=== PATIENT | female | born 1985 | race Caucasian/White ===

== ENCOUNTER 2016-12-03 02:44 | Inpatient (IN) | payer BC, OTHER ==
[2016-12-03 03:52] LABS: Hematocrit 39 % (35-47); Hemoglobin 12.9 g/dl (12.0-16.0); Mean Corpuscular HGB Conc 33 g/dl (31-36); Mean Corpuscular Hemoglobin 29 pg (27-31); Mean Corpuscular Volume 87 fL (80-97); Mean Platelet Volume 10 um3 (7.4-10.4); Red Blood Count 4.44 10^6/ul (4.0-5.4); Red Cell Distribution Width 14 % (10.5-15); White Blood Count 11.5 10^3/ul (3.5-10.8)
[2016-12-03 04:47] LABS: Albumin 3.5 g/dL (3.2-5.2); BUN/Creatinine Ratio 16.1 (8-20); Calcium 9.5 mg/dL (8.6-10.3); EGFR African American 145.4 (>60); Globulin 2.6 g/dL (2-4); Potassium 3.9 mmol/L (3.5-5.0); Total Bilirubin 0.4 mg/dL (0.2-1.0); Total Protein 6.1 g/dL (6.4-8.9); Uric Acid 5.6 mg/dL (2.3-6.6)
[2016-12-03] MEDS ORDERED: Oxytocin in LR* 20 UNITS/1,000 ML BAG IVPB SCH ×2 (15:00→21:00)
[2016-12-03] MEDS ORDERED: OBEPIDURAL* 0 ML ONE (18:53)
[2016-12-03] MEDS ORDERED: Dibucaine 1% 28.35 GM TUBE PR PRN (20:14)
[2016-12-03] MEDS ORDERED: oxyCODONE/Acetamin 5/325 MG* TAB PO PRN (20:14)
[2016-12-03] MEDS ORDERED: Acetaminophen TAB* 325 MG PO PRN (20:14)
[2016-12-03] MEDS ORDERED: Witch Hazel PAD* JAR TOPICAL PRN (20:14)
[2016-12-03] MEDS: Ibuprofen TAB* 600 MG PO PRN (20:56)
[2016-12-03] MEDS: Docusate CAP* 100 MG PO SCH (20:57)
[2016-12-04 07:48] LABS: Hematocrit 32 % (35-47); Mean Corpuscular HGB Conc 34 g/dl (31-36); Mean Corpuscular Hemoglobin 30 pg (27-31); Mean Corpuscular Volume 87 fL (80-97); Mean Platelet Volume 10 um3 (7.4-10.4); Red Cell Distribution Width 14 % (10.5-15)
[2016-12-04] MEDS: Ibuprofen TAB* 600 MG PO PRN ×3 (09:01→21:29)
[2016-12-04] MEDS: Docusate CAP* 100 MG PO SCH ×3 (09:02→20:35)
[2016-12-04] MEDS: Ferrous Gluconate TAB* 324 MG TAB PO SCH (10:39)
[2016-12-05] MEDS: Ferrous Gluconate TAB* 324 MG TAB PO SCH (07:21)
[2016-12-05 07:26] VITALS: BP 101/61
[2016-12-05] MEDS: Ibuprofen TAB* 600 MG PO PRN (08:11)
[2016-12-05] MEDS: Docusate CAP* 100 MG PO SCH (08:11)
--- NOTE | 2016-12-05 09:48 | PTEDU ---
Patient Name: EVANGELIST MELÉNDEZ EVANGELIST MELÉNDEZ selected video: Never Ever Shake a Baby to view on 12/05/2016 at 9:47:11 AM from [facility] [id number]
== END 2016-12-05 14:46 | disposition home or self-care (01) | DRG 560 ==
LOC: MCHOBOUT 02:44 → MCHOB 03:16
PROVIDERS: ADMIT Midwife; ATTEND Nurse Practitioner
PROC: 10E0XZZ Delivery of Products of Conception, External Approach (ICD-10-PCS; principal; 2016-12-05)
PROC: 0W8NXZZ Division of Female Perineum, External Approach (ICD-10-PCS; 2016-12-05)
PROC: 0KQM0ZZ Repair Perineum Muscle, Open Approach (ICD-10-PCS; 2016-12-05)
DX: O70.1 Second degree perineal laceration during delivery (principal); Z37.0 Single live birth; J45.909 Unspecified asthma, uncomplicated; O99.513 Diseases of the respiratory system complicating pregnancy, third trimester; O99.820 Streptococcus B carrier state complicating pregnancy; Z3A.38 38 weeks gestation of pregnancy; Z91.040 Latex allergy status
CPT/HCPCS: 36415; 80053; 81002; 84550; 85025; 86850; 86900; 86901; A9270-GY

== ENCOUNTER 2016-12-15 15:49 | Inpatient (IN) | payer BC, OTHER ==
[2016-12-15] MEDS ORDERED: NS 0.9% 1000 ML* 1,000 ML IV ONE ×5 (16:09→21:30)
[2016-12-15 16:33] LABS: Hematocrit 40 % (35-47); Hemoglobin 13.2 g/dl (12.0-16.0); Mean Corpuscular HGB Conc 33 g/dl (31-36); Mean Corpuscular Hemoglobin 29 pg (27-31); Mean Corpuscular Volume 87 fL (80-97); Mean Platelet Volume 7 um3 (7.4-10.4); Red Blood Count 4.55 10^6/ul (4.0-5.4); Red Cell Distribution Width 14 % (10.5-15); White Blood Count 14.8 10^3/ul (3.5-10.8)
[2016-12-15 16:44] LABS: Calcium 9.5 mg/dL (8.6-10.3); EGFR African American 155.9 (>60); EGFR Non-African American 121.3 (>60); Potassium 3.5 mmol/L (3.5-5.0); Total Bilirubin 0.4 mg/dL (0.2-1.0)
[2016-12-15] MEDS ORDERED: Ketorolac INJ* 30 MG/ML 1 ML VIAL IV ONE (16:51)
[2016-12-15 18:14] LABS: Urine Bacteria Absent (Absent); Urine Bilirubin Negative (Negative); Urine Glucose Negative (Negative); Urine Nitrite Negative (Negative)
--- NOTE | 2016-12-15 18:32 | RAD ---
INDICATION: Pain and vaginal bleeding 10 days COMPARISON: No relevant comparison images TECHNIQUE: Real-time transabdominal and transvaginal ultrasound examination of the female pelvis including grayscale and Doppler color flow imaging. FINDINGS: Uterus: The recently uterus is normal in size and echogenicity measuring 13.6 x 6.2 x 8.2 cm. The endometrial stripe is smooth and uniform measuring 11 mm in thickness. There is no vascular debris in the endometrial canal. The endometrial stripe in addition to be top normal in thickness exhibits low echogenicity. There is no hypervascularity in any part of the uterus. Ovaries: The right and left ovary measure 4.6 x 1.8 x 3.4 cm and 1.9 x 2.3 x 4.2 cm, respectively. Normal arterial and venous waveforms are identified. Appearance is within normal limits for the patient's age. There is no free fluid in the cul-de-sac. IMPRESSION: Considering the patient's 10 day status, the sonographic features are within the limits of normal. If the patient's symptoms persist and/or CT develops signs of endometritis such as fever and purulent drainage then repeat imaging is advised.
[2016-12-15] MEDS ORDERED: Acetaminophen TAB* 325 MG PO ONE (18:47)
[2016-12-15] MEDS ORDERED: cefTRIAXone(*) 1 GM in NS 0.9% 50 ML* 50 ML IVPB ONE (18:48)
[2016-12-15] MEDS ORDERED: Ampicillin IV* 2 GM in NS 0.9% 100 ML* 100 ML IVPB ONE (19:02)
[2016-12-15] MEDS ORDERED: Gentamicin ADULT (*) 120 MG in NS 0.9% 100 ML* 100 ML IVPB ONE (19:02)
[2016-12-15] MEDS ORDERED: Clindamycin 900 MG IVPREMIX(* 900 MG/50 ML SDV IV ONE (19:03)
--- NOTE | 2016-12-15 19:05 | RAD ---
INDICATION: Shortness of breath. COMPARISON: Fever 10 days . TECHNIQUE: Single AP portable view of the chest was obtained. FINDINGS: Image quality is compromised due to the relative inferiority of a portable chest x-ray. The heart and mediastinum exhibit normal size and contour. The lungs are grossly clear. There is no evidence of a large pleural effusion. Visualized bones are normal for the patient's age. IMPRESSION: No radiographic evidence for acute cardiopulmonary abnormality on this portable chest x-ray.
--- NOTE | 2016-12-15 19:06 | ED ---
Ambar Hernandez Michael, scribed for Jane Yee MD on 12/15/16 at 1648 . GI/ HPI - HPI Summary HPI Summary: 31 y/o female comes to the ED presenting with vaginal bleeding and sharp vaginal pain that started 2 days ago. The pt is 11 days post with 1cm vaginal tears. She states that her vaginal bleeding was almost gonna when it gradually worsened along with the vaginal pain. The pain is aggravated with ambulation. She also c/o BHARDWAJ, myalgia, chills, and a fever of 102.1. The pt denies breast pain, cough, dysuria, and abd pain. - History of Current Complaint Chief Complaint: EDFever Time Seen by Provider: 12/15/16 16:07 Stated Complaint: 10 DAYS /FEVER Hx Obtained From: Patient, Medical Records Onset/Duration: Started Days Ago, Still Present Timing: Intermittent Severity: Moderate Current Severity: Mild Vaginal Bleeding Description: Bright Red Pain Intensity: 3 Additional Location for Females: Uterus Pain Characteristics: Sharp Associated Signs and Symptoms: Positive: Negative - breast pain, Fever, Chills, Other: - myalgia. BHARDWAJ. vaginal bleeding.. Negative: Dysuria, Abdominal Pain, Cough - Allergy/Home Medications Allergies/Adverse Reactions: Allergies Allergy/AdvReac Type Severity Reaction Status Date / Time No Known Allergies Allergy Verified 12/15/16 15:51 PMH/Surg Hx/FS Hx/Imm Hx Endocrine/Hematology History: Denies: Hx Diabetes Respiratory History: Reports: Hx Asthma Psychiatric History: Reports: Hx Anxiety - Surgical History Surgery Procedure, Year, and Place: Benign Breast Tumors x 5. Breast Reconstruction. T&A Infectious Disease History: No Infectious Disease History: Denies: Traveled Outside the [place] in Last 30 Days - Family History Known Family History: Positive: None - pt denies a significant FHx - Social History Occupation: Employed Full-time Lives: With Family Alcohol Use: None Substance Use Type: Reports: None Smoking Status (MU): Never Smoked Tobacco Review of Systems Positive: Fever, Chills Negative: Cough Negative: Abdominal Pain Positive: other - vaginal bleeding and pain.. Negative: dysuria Positive: Headache All Other Systems Reviewed And Are Negative: Yes Physical Exam Triage Information Reviewed: Yes Vital Signs On Initial Exam: Initial Vitals Temp Pulse Resp BP Pulse Ox 102.1 F 138 20 158/96 100 12/15/16 15:51 12/15/16 15:51 12/15/16 15:51 12/15/16 15:51 12/15/16 15:51 Vital Signs Reviewed: Yes Appearance: Positive: Well-Appearing, No Pain Distress Skin: Positive: Warm, Skin Color Reflects Adequate Perfusion, Dry Eyes: Positive: EOMI, MARIANA ENT: Positive: Pharynx normal, TMs normal Neck: Positive: Supple, Nontender Respiratory/Lung Sounds: Positive: Clear to Auscultation, Breath Sounds Present. Negative: Rales, Rhonchi, Wheezes Cardiovascular: Positive: Tachycardia, Other - no gallops. Negative: Murmur, Rub Abdomen Description: Positive: Nontender, Soft, Other: - no rebound. Negative: Guarding Musculoskeletal: Positive: Strength/ROM Intact. Negative: Edema Left, Edema Right Neurological: Positive: Sensory/Motor Intact, Alert, Oriented to Person Place, Time, CN Intact II-III Psychiatric: Positive: Affect/Mood Appropriate - Destiny Coma Scale Coma Scale Total: 15 Diagnostics - Vital Signs Vital Signs Temp Pulse Resp BP Pulse Ox 12/15/16 15:51 102.1 F 138 20 158/96 100 - Laboratory Lab Results: Lab Results 12/15/16 12/15/16 12/15/16 Range/Units 16:05 16:05 16:05 WBC 14.8 H (3.5-10.8) 10^3/ul RBC 4.55 (4.0-5.4) 10^6/ul Hgb 13.2 (12.0-16.0) g/dl Hct 40 (35-47) % MCV 87 (80-97) fL MCH 29 (27-31) pg MCHC 33 (31-36) g/dl RDW 14 (10.5-15) % Plt Count 243 (150-450) 10^3/ul MPV 7 L (7.4-10.4) um3 Neut % (Auto) 88.8 H (38-83) % Lymph % (Auto) 6.9 L (25-47) % [place] % (Auto) 3.6 (1-9) % Eos % (Auto) 0.3 (0-6) % Baso % (Auto) 0.4 (0-2) % Absolute Neuts (auto) 13.2 H (1.5-7.7) 10^3/ul Absolute Lymphs (auto) 1.0 (1.0-4.8) 10^3/ul Absolute Monos (auto) 0.5 (0-0.8) 10^3/ul Absolute Eos (auto) 0.1 (0-0.6) 10^3/ul Absolute Basos (auto) 0.1 (0-0.2) 10^3/ul Absolute Nucleated RBC 0.01 10^3/ul Nucleated RBC % 0 INR (Anticoag Therapy) 0.88 L (0.89-1.11) Sodium 135 (133-145) mmol/L Potassium 3.5 (3.5-5.0) mmol/L Chloride 104 (101-111) mmol/L Carbon Dioxide 24 (22-32) mmol/L Anion Gap 7 (2-11) mmol/L BUN 11 (6-24) mg/dL Creatinine 0.58 (0.51-0.95) mg/dL Est GFR ( Amer) 155.9 (>60) Est GFR (Non-Af Amer) 121.3 (>60) BUN/Creatinine Ratio 19.0 (8-20) Glucose 94 (70-100) mg/dL Lactic Acid (0.5-2.0) mmol/L Calcium 9.5 (8.6-10.3) mg/dL Total Bilirubin 0.40 (0.2-1.0) mg/dL AST 23 (13-39) U/L ALT 25 (7-52) U/L Alkaline Phosphatase 112 H (34-104) U/L Total Protein 7.0 (6.4-8.9) g/dL Albumin 4.0 (3.2-5.2) g/dL Globulin 3.0 (2-4) g/dL Albumin/Globulin Ratio 1.3 (1-3) Urine Color Urine Appearance Urine pH (5-9) Ur Specific [place] (1.010-1.030) Urine Protein (Negative) Urine Ketones (Negative) Urine Blood (Negative) Urine Nitrate (Negative) Urine Bilirubin (Negative) Urine Urobilinogen (Negative) Ur Leukocyte Esterase (Negative) Urine WBC (Auto) (Absent) Urine RBC (Auto) (Absent) Ur Squamous Epith Cells (Absent) Urine Bacteria (Absent) Urine Glucose (Negative) Influenza A (Rapid) (Negative) Influenza B (Rapid) (Negative) 12/15/16 12/15/16 12/15/16 Range/Units 16:05 17:40 18:05 WBC (3.5-10.8) 10^3/ul RBC (4.0-5.4) 10^6/ul Hgb (12.0-16.0) g/dl Hct (35-47) % MCV (80-97) fL MCH (27-31) pg MCHC (31-36) g/dl RDW (10.5-15) % Plt Count (150-450) 10^3/ul MPV (7.4-10.4) um3 Neut % (Auto) (38-83) % Lymph % (Auto) (25-47) % [place] % (Auto) (1-9) % Eos % (Auto) (0-6) % Baso % (Auto) (0-2) % Absolute Neuts (auto) (1.5-7.7) 10^3/ul Absolute Lymphs (auto) (1.0-4.8) 10^3/ul Absolute Monos (auto) (0-0.8) 10^3/ul Absolute Eos (auto) (0-0.6) 10^3/ul Absolute Basos (auto) (0-0.2) 10^3/ul Absolute Nucleated RBC 10^3/ul Nucleated RBC % INR (Anticoag Therapy) (0.89-1.11) Sodium (133-145) mmol/L Potassium (3.5-5.0) mmol/L Chloride (101-111) mmol/L Carbon Dioxide (22-32) mmol/L Anion Gap (2-11) mmol/L BUN (6-24) mg/dL Creatinine (0.51-0.95) mg/dL Est GFR ( Amer) (>60) Est GFR (Non-Af Amer) (>60) BUN/Creatinine Ratio (8-20) Glucose (70-100) mg/dL Lactic Acid 1.6 (0.5-2.0) mmol/L Calcium (8.6-10.3) mg/dL Total Bilirubin (0.2-1.0) mg/dL AST (13-39) U/L ALT (7-52) U/L Alkaline Phosphatase (34-104) U/L Total Protein (6.4-8.9) g/dL Albumin (3.2-5.2) g/dL Globulin (2-4) g/dL Albumin/Globulin Ratio (1-3) Urine Color Straw Urine Appearance Clear Urine pH 6.0 (5-9) Ur Specific [place] 1.005 L (1.010-1.030) Urine Protein Negative (Negative) Urine Ketones Negative (Negative) Urine Blood 2+ H (Negative) Urine Nitrate Negative (Negative) Urine Bilirubin Negative (Negative) Urine Urobilinogen Negative (Negative) Ur Leukocyte Esterase 1+ H (Negative) Urine WBC (Auto) 2+(11-20/hpf) H (Absent) Urine RBC (Auto) Trace(0-2/hpf) (Absent) Ur Squamous Epith Cells Present H (Absent) Urine Bacteria Absent (Absent) Urine Glucose Negative (Negative) Influenza A (Rapid) Negative (Negative) Influenza B (Rapid) Negative (Negative) Result Diagrams: 12/15/16 16:05 12/15/16 16:05 Lab Statement: Any lab studies that have been ordered have been reviewed, and results considered in the medical decision making process. - Radiology CXR Xray Interpretation: No Acute Changes Radiology Interpretation Completed By: ED Physician - Additional Comments Diagnostic Additional Comments: Pelvic US: Radiologist-Considering the patient's 10 day status, the sonographic features are within the limits of normal. If the patient's symptoms persist and/or CT develops signs of endometritis such as fever and purulent drainage then repeat imaging is advised. GIGU Course/Dx - Course Course Of Treatment: pt will be admitted to OB for endometritis - Diagnoses Provider Diagnoses: Endometritis Discharge - Discharge Plan Condition: Stable Disposition: ADMITTED TO [facility] Prescriptions: Cephalexin CAP* [Keflex CAP*] 500 mg PO QID #28 cap The documentation as recorded by the Ambar frazier Michael accurately reflects the service I personally performed and the decisions made by me, Jane Yee MD.
[2016-12-15] MEDS ORDERED: Acetaminophen TAB* 325 MG PO PRN (21:30)
[2016-12-15] MEDS: Ibuprofen TAB* 600 MG PO SCH (22:21)
[2016-12-15] MEDS: Ampicillin IV* 2 GM in NS 0.9% 100 ML* 100 ML IVPB SCH (22:21)
[2016-12-15] MEDS: Gentamicin ADULT (*) 100 MG in NS 0.9% 100 ML* 100 ML IVPB SCH (23:12)
[2016-12-15] MEDS: Clindamycin 900 MG IVPREMIX(* 900 MG/50 ML SDV IV SCH (23:58)
--- NOTE | 2016-12-16 03:57 | HP ---
HISTORY AND PHYSICAL: DATE OF ADMISSION: 12/15/16 ADMISSION DIAGNOSIS: Fever. HISTORY OF PRESENT ILLNESS: The patient is a 31-year-old 2 para 1-0-1-1 , who presents status post 12 days normal spontaneous vaginal delivery with elevated fevers to a 102 in the emergency room and approximately 24 hours of temperatures and chills at home. The patient notes in the past 48 hours, her bleeding had picked up, started as bright red and then the day of admission was noted to have an odor to the discharge and for it to have brownish to red color. The patient notes she has been having some stabbing lower abdominal pain and notes that this discomfort has increased throughout the past 24 hours. The patient is breast feeding and has had normal normal with pumping in between. The patient had an uncomplicated vaginal with second - degree laceration and was noted to be GBS positive and did receive penicillin G in labor. PAST MEDICAL HISTORY: Noted for asthma and some history of anxiety in the past. PAST SURGICAL HISTORY: Noted for benign tumor removal with breast biopsies and then breast augmentation and tonsils and adenoids. ALLERGIES: No known drug allergies. 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 Denies tobacco use or current alcohol use. 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 REVIEW OF SYSTEMS: Positive for chills. Positive for fever. Negative for nausea, vomiting. Negative for dysuria. as noted above in history with increasing discharge and discomfort. PHYSICAL EXAMINATION CONSTITUTIONAL: Pleasant-appearing female with no apparent distress. VITAL SIGNS: Temp at the time of exam was 99.2, blood pressure was 128/90, pulse was 109, resps 16. CHEST: No adenopathy appreciated in the axilla. Breasts are engorged. No erythema. No tenderness. No nodules appreciated in breast exam bilaterally. ABDOMEN: Scaphoid. Tenderness above the pubic symphysis with palpation of the fundus of the uterus. EXTREMITIES: Nontender. No edema. PERINEAL EXAM: Shows a green-brown discharge with red tint. Perineum appears to be intact. Per ER physician, cervix with normal appearance and no cervical motion tenderness. ASSESSMENT AND PLAN: The patient is a 31-year-old 2, para 1, status post normal spontaneous vaginal delivery on 12/03/16. The patient comes in with probable endometritis. Plan is to do blood cultures, which were obtained prior to beginning antibiotics. Her white count is slightly elevated at 14.8 with a left shift and 88 neutrophils. The plan is to recheck in a.m. She is to receive broad-spectrum antibiotics including amp, gent and clinda. She will continue to pump as she has been pumping at home and we can store that milk for her to save for her baby. We will cover fever with Tylenol and any uterine cramping or discomfort with oral ibuprofen. The patient verbalized an understanding of the diagnosis and the plan of treatment and care. [id number]/[facility] #: [id number] ZO
[2016-12-16] MEDS: Ampicillin IV* 2 GM in NS 0.9% 100 ML* 100 ML IVPB SCH ×4 (04:16→22:03)
[2016-12-16] MEDS: Ibuprofen TAB* 600 MG PO SCH ×3 (06:36→22:07)
[2016-12-16] MEDS: Gentamicin ADULT (*) 100 MG in NS 0.9% 100 ML* 100 ML IVPB SCH ×3 (06:36→23:09)
[2016-12-16] MEDS: Clindamycin 900 MG IVPREMIX(* 900 MG/50 ML SDV IV SCH ×3 (07:43→23:57)
[2016-12-16 08:28] LABS: Hematocrit 35 % (35-47); Hemoglobin 11.3 g/dl (12.0-16.0); Mean Corpuscular HGB Conc 33 g/dl (31-36); Mean Corpuscular Hemoglobin 29 pg (27-31); Mean Corpuscular Volume 88 fL (80-97); Mean Platelet Volume 7 um3 (7.4-10.4); Red Blood Count 3.93 10^6/ul (4.0-5.4); Red Cell Distribution Width 15 % (10.5-15); White Blood Count 17.4 10^3/ul (3.5-10.8)
[2016-12-16] MEDS: Prenatal Vitamin TAB PO SCH (09:29)
[2016-12-16] MEDS: Lactobacillus Acidophilu (GG)* 1 CAP CAP PO SCH (22:08)
[2016-12-17] MEDS: Ampicillin IV* 2 GM in NS 0.9% 100 ML* 100 ML IVPB SCH ×2 (03:51→09:37)
[2016-12-17] MEDS: Ibuprofen TAB* 600 MG PO SCH (06:17)
[2016-12-17] MEDS: Gentamicin ADULT (*) 100 MG in NS 0.9% 100 ML* 100 ML IVPB SCH (06:18)
[2016-12-17] MEDS: Prenatal Vitamin TAB PO SCH (07:36)
[2016-12-17] MEDS: Clindamycin 900 MG IVPREMIX(* 900 MG/50 ML SDV IV SCH (07:36)
[2016-12-17] MEDS: Lactobacillus Acidophilu (GG)* 1 CAP CAP PO SCH (07:36)
[2016-12-17 07:56] VITALS: BP 118/83
[2016-12-17 09:11] LABS: Hematocrit 34 % (35-47); Hemoglobin 11.6 g/dl (12.0-16.0); Mean Corpuscular HGB Conc 34 g/dl (31-36); Mean Corpuscular Hemoglobin 29 pg (27-31); Mean Corpuscular Volume 87 fL (80-97); Mean Platelet Volume 7 um3 (7.4-10.4); Red Blood Count 3.96 10^6/ul (4.0-5.4); Red Cell Distribution Width 14 % (10.5-15); White Blood Count 8.3 10^3/ul (3.5-10.8)
[2016-12-17] MEDS ORDERED: Amoxicillin/Clavulanate TAB* 875 MG PO SCH (21:00)
--- NOTE | 2016-12-25 00:59 | DS ---
DISCHARGE SUMMARY: DATE OF ADMISSION: DATE OF DISCHARGE: 12/17/16 HOSPITAL COURSE: The patient presented on 12/15/16. She is 31 years old, 2, para 1-0-1-1. She was day 12 from a normal spontaneous vaginal delivery. The patient complained of fever and chills for 24 hours. Her temperature on admission was 102. Her white blood cell count was 14.8. The presumptive diagnosis was endometritis. She received ampicillin , gentamicin, and clindamycin IV. Over the next 2 days, her symptoms resolved. She was clinically well. She was afebrile and her white count returned to normal by 12/17/16. One of the blood cultures was positive for group B strep. She was discharged home on Augmentin for a 14-day course. [id number]/[facility] #: [id number] MTDD
== END 2016-12-17 10:30 | disposition home or self-care (01) | DRG 776 ==
LOC: ED 15:49 → SSU 19:00 → OBSVTOIN 21:30
PROVIDERS: ADMIT Obstetrics & Gynecology; ATTEND Obstetrics & Gynecology
DX: O86.12 Endometritis following delivery (principal); B95.1 Streptococcus, group B, as the cause of diseases classified elsewhere; J45.909 Unspecified asthma, uncomplicated
CPT/HCPCS: 36415; 71010; 76856; 80053; 81003; 81015; 83605; 85025; 85610; 87040; 87077; 87086; 87186; 87502; A9270-GY; J0290; J0696; J1580; J1885

== ENCOUNTER 2018-12-11 01:13 | Inpatient (IN) | payer OTHER ==
[2018-12-11] MEDS ORDERED: OBEPIDURAL* 0 ML EPIDURAL ONE (01:39)
[2018-12-11 01:45] LABS: ABS Basophils 0 10^3/ul (0-0.2); ABS Eosinophils 0 10^3/ul (0-0.6); ABS Lymphocytes 2.3 10^3/ul (1.0-4.8); ABS Monocytes 0.8 10^3/ul (0-0.8); ABS Neutrophils 6.4 10^3/ul (1.5-7.7); ABS Nucleated RBC 0 10^3/ul; Eosinophil % 0.5 %; Hematocrit 39 % (33-41); Hemoglobin 12.9 g/dL (12.0-16.0); Lymphocyte % 23.7 %; Mean Corpuscular HGB Conc 33 g/dL (31-36); Mean Corpuscular Hemoglobin 28 pg (27-31); Mean Corpuscular Volume 83 fL (80-97); Mean Platelet Volume 8.7 fL (7.4-10.4); Nucleated Red Blood Cells % 0; Platelet Count 200 10^3/uL (150-450); Red Blood Count 4.68 10^6 /uL (3.70-4.87); Red Cell Distribution Width 14 % (10.5-15); White Blood Count 9.6 10^3/uL (3.5-10.8)
[2018-12-11] MEDS ORDERED: Oxytocin in LR* 20 UNITS/1,000 ML BAG IVPB ONE (02:34)
[2018-12-11] MEDS ORDERED: Buffered Lidocaine 1% SYRIN* 1 ML/SYRINGE INTRADERM ONE (02:51)
[2018-12-11] MEDS ORDERED: Lactated Ringers 1000 ML Bag* 1,000 ML IV ONE (02:51)
[2018-12-11] MEDS ORDERED: Penicillin G Potassium IV* 5,000,000 UNITS in NS 0.9% 100 ML* 100 ML IVPB ONE (02:51)
[2018-12-11] MEDS ORDERED: Witch Hazel PAD* JAR TOPICAL PRN (02:58)
[2018-12-11] MEDS ORDERED: Glycerin ADULT SUPP PR PRN (02:58)
[2018-12-11] MEDS ORDERED: RHO D Immune Globulin (HUMAN)* 300 MCG = 1,500 I.U. INJ IM ONE (02:58)
[2018-12-11] MEDS ORDERED: Dibucaine 1% 28.35 GM TUBE PR PRN (02:58)
[2018-12-11] MEDS ORDERED: Oxytocin in LR* 20 UNITS/1,000 ML BAG IVPB SCH (03:00)
[2018-12-11] MEDS ORDERED: Lactated Ringers 1000 ML Bag* 1,000 ML IV SCH ×2 (03:00)
[2018-12-11] MEDS: Ibuprofen TAB* 600 MG PO PRN ×3 (04:14→19:38)
[2018-12-11] MEDS: Penicillin G Potassium IV* 2,500,000 UNITS in NS 0.9% 100 ML* 100 ML IVPB SCH ×3 (07:50→16:07)
[2018-12-11] MEDS ORDERED: Simethicone TAB* 80 MG TAB.CHEW PO SCH (08:30)
[2018-12-11] MEDS: Docusate CAP* 100 MG PO SCH ×3 (08:33→21:25)
[2018-12-11] MEDS: Acetaminophen TAB* 325 MG PO PRN ×2 (09:12→14:29)
--- NOTE | 2018-12-11 18:38 | HP ---
General Information - Reason for Visit IUP@38+1 admitted for active labor - General Information Maternal Age: 33 Grav: 3 Para: 0 SAB: 1 IEA: 0 Estimated Due Date: 12/24/18 Determined By: LMP Gestational Age in Weeks/Days: 38+1 Maternal Blood Type and Rh: O Negative - Results this Serology/RPR Result: Non-Reactive Rubella Result: Immune HBsAg Result: Negative HIV Result: Negative GBS Culture Result: Positive Past Medical History Delivery History: Hx Complicated Vaginal Delivery, See Records - Hx of PP endometritis/sepsis Pertinent Past Medical History: See Records Past Medical History Comment: Asthma, allergies, anxiety Pertinent Past Surgical History: See Records Past Surgical History Comment: breast lumpectomy, breast augmentation, tonsillectomy Pertinent Family History: See Records Family History Comment: PGM hx of breast cancer - Antepartal Records Antepartal Records: Reviewed, Uncomplicated Review of Systems Constitutional: Uncomfortable CV Complaint: No Respiratory: Shortness of Breath: No Gastrointestinal: No Nausea/Vomiting, Diarrhea Genitourinary: No Dysuria, No Leaking Fluid, Spotting Musculoskeletal: Back Pain, Contractions Neurological: No Headache, No Visual Changes Movement: Normal Exam Allergies/Adverse Reactions: Allergies No Known Allergies Allergy (Verified 12/15/16 15:51) Vital Signs 12/11/18 12/11/18 12/11/18 02:30 03:00 04:00 Temperature 98.2 F 98.3 F 98.4 F Pulse Rate 87 80 83 Respiratory 18 18 18 Rate Blood Pressure 127/88 122/69 115/73 (mmHg) O2 Sat by Pulse Oximetry 12/11/18 12/11/18 12/11/18 05:00 06:05 09:40 Temperature 98.6 F 99.0 F 99.1 F Pulse Rate 76 77 89 Respiratory 18 18 20 Rate Blood Pressure 117/75 127/77 121/79 (mmHg) O2 Sat by Pulse 98 Oximetry 12/11/18 15:57 Temperature 98.6 F Pulse Rate 88 Respiratory 16 Rate Blood Pressure 112/74 (mmHg) O2 Sat by Pulse Oximetry Lab Values - Entire Visit: Laboratory Tests 12/11/18 12/11/18 01:36 01:36 WBC 9.6 RBC 4.68 Hgb 12.9 Hct 39 MCV 83 MCH 28 MCHC 33 RDW 14 Plt Count 200 MPV 8.7 Neut % (Auto) 66.9 Lymph % (Auto) 23.7 [place] % (Auto) 8.4 Eos % (Auto) 0.5 Baso % (Auto) 0.5 Absolute Neuts (auto) 6.4 Absolute Lymphs (auto) 2.3 Absolute Monos (auto) 0.8 Absolute Eos (auto) 0 Absolute Basos (auto) 0 Absolute Nucleated RBC 0 Nucleated RBC % 0 Blood Type O Negative Antibody Screen Negative - Measurements Height: 5 ft 2 in Weight: 152 lb Weight in lbs: 152.470395 Body Mass Index (BMI): 27.8 Pre- Weight: 114 lb 15.996 oz Weight Gained This : 37.000 lbs and 0.004 ozs - Exam Breast: Breast Exam Deferred CVA: No CVA Tenderness Extremities: No Edema Heart: Normal Rhythm/Heart Sounds HEENT: No Significant Findings Lungs: Clear Bilaterally Rectal: Rectal Exam Deferred Reflexes: DTR 2+ Targeted Exam Findings See L&D Outpatient Visit Provider Note for Findings: N/A Estimated Weight: 7lbs Cervical Exam: 4cm Effacement: 100% Station: -1 Presenting Part: Vertex Membrane Status: Intact Bleeding/Discharge: Bloody Show EFM Findings - External Monitor Findings Baseline Heart Rate: 120 External Monitor Findings: Accelerations Present, No Pattern of Variable or Late Decelerations, Variability Moderate External Monitor Findings Comment: No evidence of metabolic acidemia Contractions: Regular, 45-90 Seconds - q 2 minutes Assessment/Plan - Assessment IUP@38+1 in active labor Hx of PP endometritis/sepsis Rh negative IBOW No evidence of acidemia Chriss q2 minutes, good resting tone Requesting epidural Well supported by - Obstetrical Risk Factors Risk Factors Comment: Hx of PP endometritis/sepsis - Plan Plan: Admit - Anticipate Vaginal Delivery Plan Comment: GBS abx prophylaxis Epidural now VE PRN - Date/Time of Admission Date of Admission: 12/11/18 Time of Admission: 01:31
--- NOTE | 2018-12-11 18:43 | PROCNOTE ---
[facility] OB: Delivery Note - Delivery A Date of : 12/11/18 Time of : 01:59 [place] Sex: Female Weight at : 6 lb 8 oz Score 1 Minute: 8 Score 5 Minutes: 9 Gestational Age in Weeks and Days at Delivery: 38 Weeks and 1 Days Delivery Method: Spontaneous Vaginal Labor: Spontaneous Did Patient attempt ?: N/A, No Previous Amniotic Fluid: Meconium Estimated Blood Loss: 300 Anesthesia/Analgesia: None Delivered By: Marah Grullon - Nursery Level of Nursery: Regular/Bedside - Perineum Perineal Injury: 2nd Degree Perineal Repair: and Leonel Salmeron MD - Events Delivery Events of Note: Pitocin Only After Delivery, Precipitous Delivery, Antibiotics Indicated - Not Given - Additional Delivery Notes Additional Delivery Notes: Pt admitted at 38+1 in active labor. VE 4/100/-1, progressed rapidly to complete and complete without anesthesia. Strong maternal pushing effort led to of liveborn female, OA to CHACHO, shoulders followed easily. [place] vigorous with spontaneous cry, heartbeat >100 BPM. Delivered to maternal abdomen. Cord clamped x2 and cut by FOB. Spontaneous delivery of intact placenta, membranes complete. Fundus firm to massage with IV pitocin infusing. Minimal bleeding noted, EBL 300 mL. Careful inspection of the perineum revealed a second degree perineal laceration, repaired in the usual fashion, anatomy restored, good homeostasis achieved. At time of note, mother and infant in stable condition, planning to breastfeed.
[2018-12-11] MEDS ORDERED: Calcium Carbonate CHEW TAB* 500 MG (TUMS) PO PRN (20:56)
[2018-12-12] MEDS: Acetaminophen TAB* 325 MG PO PRN ×4 (00:05→20:38)
[2018-12-12] MEDS: Ibuprofen TAB* 600 MG PO PRN ×3 (01:50→18:07)
[2018-12-12 07:51] LABS: ABS Basophils 0.1 10^3/ul (0-0.2); ABS Eosinophils 0.1 10^3/ul (0-0.6); ABS Monocytes 0.6 10^3/ul (0-0.8); ABS Neutrophils 6.6 10^3/ul (1.5-7.7); ABS Nucleated RBC 0 10^3/ul; Eosinophil % 1.1 %; Hematocrit 35 % (33-41); Hemoglobin 11.4 g/dL (12.0-16.0); Mean Corpuscular HGB Conc 33 g/dL (31-36); Mean Corpuscular Hemoglobin 27 pg (27-31); Mean Corpuscular Volume 83 fL (80-97); Mean Platelet Volume 8.7 fL (7.4-10.4); Nucleated Red Blood Cells % 0.1; Platelet Count 140 10^3/uL (150-450); Red Blood Count 4.15 10^6 /uL (3.70-4.87); Red Cell Distribution Width 14 % (10.5-15); White Blood Count 9.3 10^3/uL (3.5-10.8)
[2018-12-12] MEDS ORDERED: Ferrous Gluconate TAB* 324 MG TAB PO SCH (09:00)
[2018-12-12] MEDS: Docusate CAP* 100 MG PO SCH ×3 (09:23→20:37)
[2018-12-13] MEDS: Acetaminophen TAB* 325 MG PO PRN ×2 (00:23→04:06)
[2018-12-13] MEDS: Ibuprofen TAB* 600 MG PO PRN ×2 (00:23→09:19)
[2018-12-13 08:33] VITALS: BP 122/82
[2018-12-13] MEDS: Docusate CAP* 100 MG PO SCH (09:21)
== END 2018-12-13 12:17 | disposition home or self-care (01) | DRG 807 ==
LOC: MCHOBOUT 01:13 → MCHOB 01:31
PROVIDERS: ADMIT Advanced Practice Midwife; ATTEND Advanced Practice Midwife
PROC: 10E0XZZ Delivery of Products of Conception, External Approach (ICD-10-PCS; principal; 2018-12-11)
PROC: 0KQM0ZZ Repair Perineum Muscle, Open Approach (ICD-10-PCS; 2018-12-11)
DX: O62.3 Precipitate labor (principal); Z37.0 Single live birth; O77.0 Labor and delivery complicated by meconium in amniotic fluid; O70.1 Second degree perineal laceration during delivery; O99.824 Streptococcus B carrier state complicating childbirth; Z3A.38 38 weeks gestation of pregnancy
CPT/HCPCS: 36415; 85025; 86850; 86900; 86901; A9270-GY; J2540

== ENCOUNTER 2020-01-21 08:33 | Emergency (ER) | payer OTHER ==
[2020-01-21 08:47] VITALS: BP 119/83
== END 2020-01-21 09:52 | disposition home or self-care (01) ==
LOC: UCCORT 08:33